=== PATIENT | male | born 1980 | race Two or more races ===

== ENCOUNTER → 2020-11-21 | Outpatient (CLI) | payer OTHER ==
[~2020-11-21] MED LIST: IOHEXOL 300 MG/ML 75 ML VIAL. IV ONE
--- NOTE | 2020-11-22 08:21 | RAD ---
EXAM: CT ABDOMEN/PELVIS WITH CONTRAST. HISTORY: Right lower quadrant pain. TECHNIQUE: Computed tomography of the abdomen and pelvis was performed after the intravenous administ ration of iodinated contrast. One or more of the following individualized dose reduction techniques w ere utilized for this examination: 1. Automated exposure control. 2. Adjustment of the mA and/or kV according to patient size. 3. Use of iterative reconstruction technique. COMPARISON: None. FINDINGS: Lung windows through the visualized portions of the bases reveal mild atelectasis. Bone win dows reveal no suspicious lesions. Degenerative disc disease is moderate to severe at L5-S1. A 6 mm hypoattenuating focus in the right hepatic lobe is most likely a benign cyst or hemangioma. Th e spleen, pancreas, adrenal glands, gallbladder and kidneys are unremarkable. There are no pathologically enlarged lymph nodes. There is wall thickening of the right colon. There is no small bowel wall thickening or obstruction. There is no evidence of appendicitis. IMPRESSION: 1. Wall thickening of the right colon suggests focal colitis. Correlate for infectious or inflammator y etiologies in this distribution. Electronically signed by: Arsh Chambers MD (11/22/2020 8:18 AM) [facility]
== END ==
LOC: EDBD 16:44 → CT 16:44
PROVIDERS: ATTEND Nurse Practitioner Family
DX: R10.9 Unspecified abdominal pain (principal); J98.11 Atelectasis; M51.37 Other intervertebral disc degeneration, lumbosacral region
CPT/HCPCS: 74177; Q9967